=== PATIENT | male | born 1960 | race Caucasian/White ===

== ENCOUNTER → 2017-02-25 | Outpatient (CLI) | payer OTHER ==
[~2017-02-25] MED LIST: FILG300I4 IM; FOLFOX IV; LISI-729 PO; MULT-506 PO; PROC1TAB5 PO
[2017-02-25 10:44] LABS: HEMATOCRIT 38.7 % (42-52); MEAN CORPUSCULAR HEMOGLOBIN 31.3 pg (25-34); MEAN CORPUSCULAR HGB CONC 33.6 g/dl (32-36); MEAN PLATELET VOLUME 8.9 fL (7.4-10.4); PLATELET COUNT 224 K/uL (130-400); RED BLOOD COUNT 4.16 M/uL (4.7-6.1); WHITE BLOOD COUNT 5.56 K/uL (4.8-10.8)
[2017-02-25 11:07] LABS: URINE APPEARANCE CLEAR (CLEAR); URINE BILIRUBIN NEG (NEG); URINE COLOR YELLOW; URINE EPITHELIAL CELL AUTO 0-5 /lpf (0-5); URINE NITRITE NEG (NEG); URINE PH 6.5 (4.5-7.5); URINE SPECIFIC GRAVITY 1.014 (1.000-1.030); UROBILINOGEN NEG (NEG)
[2017-02-25 11:08] LABS: MANUAL MICROSCOPIC REQUIRED? NO; REVIEW REQ? NO
[2017-02-25 11:17] LABS: ALT/SGPT 28 U/L (12-78); BLOOD UREA NITROGEN 12 mg/dl (7-18); BUN/CREATININE RATIO 10.5 (10-20); CALCIUM 9.1 mg/dl (8.5-10.1); CARBON DIOXIDE 30 mmol/L (21-32); CHLORIDE 103 mmol/L (98-107); CHOLESTEROL 267 mg/dl (0-200); GLUCOSE 102 mg/dl (70-99); POTASSIUM 4.1 mmol/L (3.5-5.1); SODIUM 140 mmol/L (136-145)
[2017-02-25 11:27] LABS: CHOLESTEROL/HDL RATIO 3.7; HDL CHOLESTEROL 72 mg/dl; LDL CHOLESTEROL CALCULATED 174 mg/dl; TRIGLYCERIDES 104 mg/dl (0-150); VERY LOW DENSITY LIPOPROT CALC 21 mg/dl
[2017-02-25 12:32] LABS: ESTIMATED AVERAGE GLUCOSE 117 mg/dl; HA1C FLAG Normal (Normal)
== END | disposition home or self-care (01) ==
LOC: C.LABSPEC 11:13
PROVIDERS: ATTEND Family Medicine
DX: I10 Essential (primary) hypertension (principal); R73.01 Impaired fasting glucose; E78.2 Mixed hyperlipidemia

== ENCOUNTER → 2017-05-07 | Outpatient (CLI) | payer OTHER ==
--- NOTE | 2017-05-07 13:10 | DIAGNOSTIC IMAGING REPORT ---
GI W/AIR SMALL BOWEL ROUTINE CLINICAL HISTORY: NAUSEA, HX OF PARTIAL BOWEL OBSTRUCTION COMPARISON STUDY: None FLUOROSCOPY TIME: 3 minutes 20 seconds. FINDINGS: Patient initiates swallowing function well. Esophagus is normal in course and caliber small hiatal hernia. Moderate gastroesophageal reflux. Size and configuration stomach are normal. Delayed imaging the 4 hour 10 minutes demonstrates progressive distention of the small bowel. Etiology is unclear although there appears to be an intermittent tapering in the low abdominal region centrally. Embolus, the appearance is consistent with a high-grade partial small bowel obstructive process. IMPRESSION: High-grade distal small bowel obstruction of uncertain etiology. The above report was generated using voice recognition software. It may contain grammatical, syntax or spelling errors. Electronically signed by: Johnny Rasmussen M.D. 05/07/2017 1:07 PM Dictated Date/Time: 05/07/2017 1:04 PM
== END | disposition home or self-care (01) ==
LOC: C.RAD 08:07
PROVIDERS: ATTEND Colon & Rectal Surgery
DX: K56.69 Other intestinal obstruction (principal); C20 Malignant neoplasm of rectum; Z87.19 Personal history of other diseases of the digestive system

== ENCOUNTER → 2017-07-14 | Outpatient (CLI) | payer OTHER ==
[2016-07-08 14:25] VITALS: BP 125/76; PULSE 91
[2017-07-14 13:30] VITALS: BP 136/80; PULSE 68; TEMP 36.7; O2SAT 98
--- NOTE | 2017-07-14 14:49 | Radiation Oncology Follow-Up ---
Radiation Oncology Follow-Up Date of Visit Jul 14, 2017. Reason For Visit Annual follow-up Radiation Completion Date 12/11/15 Diagnosis (1) Rectal adenocarcinoma Status: Resolved Onset Date: 09/11/2015 Stage: ll Permanent Comment: Change in bowel habits Status post colonoscopy and biopsy 09/11/2015 revealing adenocarcinoma the rectum Clinical stage T3 N0 M0 Plan neoadjuvant radiation and chemotherapy Chemotherapy comprised of Xeloda Status post completion of radiation therapy 12/11/2015 received 5180 cGy Status post AP resection of the rectum 02/25/2016 Stage ypT2 [id number] Adjuvant chemotherapy with FOLFOX Last Edited By: Isis Mantilla on Jul 08, 2016 16:17 History of Present Illness Mr. Lane had not undergone screening colonoscopies. There is no family history of colon cancer. Unfortunately he presented with change in his bowel habits with increase in the number of bowel movements, change in caliber, constipation and ultimately rectal bleeding. The patient underwent his first ever colonoscopy on 09/11/[address] Ferguson. The terminal ileum appeared normal. There were scattered small and largemouth diverticula in the sigmoid colon. A fungating nonobstructing large mass was found in the distal rectum. The mass was partially circumferential involving one half of the lumen circumference. The mass measured 10 cm in length extending from the anal verge to the 10 cm level. The tissue was friable, noted fresh blood in the rectum was identified at the time of the colonoscopy). Biopsies were taken. This revealed an invasive moderately differentiated adenocarcinoma. Accession #: [id number]. Dr. Ferguson ordered a CT scan of the chest abdomen and pelvis performed on 2015. CT scan of the chest showed no evidence of metastatic disease within the chest. An indeterminate 8 mm left renal lesion was noted. It was reported this could reflect a solid renal lesion or possibly a complex cyst. A follow- up nonemergent renal protocol CT was recommended. CT scan of the abdomen and pelvis also on September 18 showed mild hepatic steatosis with no space-occupying hepatic masses visualized. Gallbladder spleen and pancreas were unremarkable. The 8 mm exophytic left renal mass was again noted. This succeeded water attenuation and was therefore indeterminate. There was soft tissue thickening involving the rectum. There was no intraperitoneal free air of abdominal ascites. A few small lymph nodes were seen within the perisigmoid fat that were not pathologically enlarged. There was no skeletal evidence of destructive bony lesions. The bladder and pelvic viscera are unremarkable. Patient also underwent an MRI of the pelvis also on 09/18/2015. This showed a long segment of irregular rectal wall thickening of the mid to distal rectum. This began at the level of the mid rectum. The distal extent is difficult to assess on this exam but extends towards the anus. The overall extension was possibly 9.7 cm. There was enhancement of the wall which appeared irregular. On several images this suspected tumor appears to extend beyond the muscularis propria within the right lateral aspect of the rectum. There was no evidence for bowel obstruction. There were several perirectal lymph nodes which measure up to 7 mm and a round millimeter inferior mesenteric lymph node shown on image 1:30. These are all indeterminate. No enlarged inguinal nodes are identified. No areas of bone marrow replacement is appreciated. The patient was seen by Dr. Hairston for surgical evaluation.. He discussed with the patient the use of neoadjuvant chemoradiation followed in 16 weeks by surgery. Based on the radiologic and clinical findings the patient would require an APR. The patient was also seen by Dr. Barraza for medical oncology evaluation. He agreed with the plan of neoadjuvant chemoradiation and has written a prescription for daily Xeloda along with his daily radiation treatments. He was seen by Dr. Villela/ Dr. Oshea for evaluation of the renal finding. They suggested a repeat CT renal mass protocol in 6 months. We are asked to see the patient in referral to discuss with him the role of neoadjuvant chemoradiation. He was treated from 11/01/2015 to 12/11/2015. He received 5180 cGy. Chemotherapy comprised of Xeloda. Interim History He had issues with recurrent abdominal pain and cramping. He had then have associated nausea vomiting and diarrhea. This began over several months time. It would happen once a month. The reoccurrences became more frequent. In April he was admitted with a small bowel obstruction. He underwent a resection and has been doing well since. He has not had any further abdominal pain, cramping, nausea, or vomiting. During the episodes of cramping and nausea he lost 20 pounds. He is now regained the weight he had lost. He is following a low residue diet as instructed by the colorectal surgeon. 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 He is seen regularly by medical oncology and has had rechecked studies including a CEA titer which is normal. Allergies Coded Allergies: Penicillins (Verified Allergy, Unknown, RASH, 03/19/16) Rosuvastatin (Verified Allergy, Unknown, Joint & Muscle Pain, 03/19/16) Simvastatin (Verified Allergy, Unknown, Joint & Muscle Pain, 03/19/16) Home Medications Scheduled Lisinopril (Zestril), 5 MG PO QAM Multivitamin (Multivitamin), 1 TAB PO QAM Review of Systems Gastrointestinal: Symptoms: Ostomy GI Comments: Reports normal ostomy function; Oral: Symptoms: No Problems Respiratory: Symptoms: WNL Urinary: Symptoms: WNL Skin: Symptoms: No Problems Physical Exam Vital Signs Date Time Temp Pulse Resp B/P (MAP) Pulse Ox O2 Delivery O2 Flow Rate FiO2 07/14/17 13:30 36.7 68 24 136/80 98 Fatigue: None General Appearance: no apparent distress Eyes: normal inspection, EOMI ENT: normal ENT inspection, hearing grossly normal Neck: no adenopathy, thyroid normal Respiratory/Chest: lungs clear, no respiratory distress, no accessory muscle use Cardiovascular: regular rate, rhythm, no gallop, no murmur Abdomen: non tender, soft, no organomegaly, + pertinent finding (ostomy in place without issues) Anal / Rectum: Skin of the perineum has healed. There is no telangiectasia. Neurologic/Psychiatric: alert, normal mood/affect Skin: warm/dry Lymphatic: no adenopathy Pain Management Side: Bilateral Pain Location: None Patient Preferred Pain Scale: 0 - 10 Laboratory Studies Test 05/07/17 11:51 White Blood Count 8.41 K/uL (4.8-10.8) Red Blood Count 4.35 M/uL (4.7-6.1) Hemoglobin 13.7 g/dL (14.0-18.0) Hematocrit 39.9 % (42-52) Mean Corpuscular Volume 91.7 fL (80-100) Mean Corpuscular Hemoglobin 31.5 pg (25-34) Mean Corpuscular Hemoglobin Concent 34.3 g/dl (32-36) Platelet Count 321 K/uL (130-400) Mean Platelet Volume 9.2 fL (7.4-10.4) Neutrophils (%) (Auto) 76.9 % Lymphocytes (%) (Auto) 12.8 % Monocytes (%) (Auto) 9.6 % Eosinophils (%) (Auto) 0.4 % Basophils (%) (Auto) 0.1 % Neutrophils # (Auto) 6.46 K/uL (1.4-6.5) Lymphocytes # (Auto) 1.08 K/uL (1.2-3.4) Monocytes # (Auto) 0.81 K/uL (0.11-0.59) Eosinophils # (Auto) 0.03 K/uL (0-0.5) Basophils # (Auto) 0.01 K/uL (0-0.2) RDW Standard Deviation 43.6 fL (36.4-46.3) RDW Coefficient of Variation 13.0 % (11.5-14.5) Immature Granulocyte % (Auto) 0.2 % Immature Granulocyte # (Auto) 0.02 K/uL (0.00-0.02) Sodium Level 137 mmol/L (136-145) Potassium Level 3.5 mmol/L (3.5-5.1) Chloride Level 99 mmol/L (98-107) Carbon Dioxide Level 30 mmol/L (21-32) Anion Gap 8.0 mmol/L (3-11) Blood Urea Nitrogen 9 mg/dl (7-18) Creatinine 0.92 mg/dl (0.60-1.40) Est Creatinine Clear Calc Drug Dose 100.4 ml/min Estimated GFR () 105.9 Estimated GFR (Non- 91.4 BUN/Creatinine Ratio 9.3 (10-20) Random Glucose 99 mg/dl (70-99) Calcium Level 9.7 mg/dl (8.5-10.1) Total Bilirubin 1.1 mg/dl (0.2-1) Aspartate Amino Transferase (AST) 27 U/L (15-37) Alanine Aminotransferase (ALT) 38 U/L (12-78) Alkaline Phosphatase 113 U/L (45-117) Total Protein 7.7 gm/dl (6.4-8.2) Albumin 3.9 gm/dl (3.4-5.0) Globulin 3.8 gm/dl (2.5-4.0) Albumin/Globulin Ratio 1.0 (0.9-2) Carcinoembryonic Antigen < 0.5 ng/ml (0-2.5) Assessment & Plan Plan: Continue regular follow-up with medical oncology has an appointment next month. He'll be having recheck CEA titer. Continue follow-up with the colorectal surgeon. We asked him to return to our office in 1 year. He may call if he has any questions or concerns in the interim. Total Time In Follow-Up I spent 20 minutes speaking to the patient performing his examination. I spent 15 minutes reviewing information in completing this note. Copy To Rusty Barraza D.O.; Allan Hairston M.D.; Theodore Miller M.D.
== END | disposition home or self-care (01) ==
LOC: C.ONC 13:26
PROVIDERS: ATTEND Physician Assistant Medical
DX: Z08 Encounter for follow-up examination after completed treatment for malignant neoplasm (principal); Z92.3 Personal history of irradiation; Z85.048 Personal history of other malignant neoplasm of rectum, rectosigmoid junction, and anus

== ENCOUNTER → 2018-03-18 | Outpatient (CLI) | payer OTHER ==
[~2018-03-18] MED LIST changes: -FILG300I4 IM; -FOLFOX IV; -PROC1TAB5 PO
[2018-03-18 09:20] LABS: BASO % 0.5 %; BASO ABS # 0.03 K/uL (0-0.2); EOS % 2.7 %; EOS ABS # 0.17 K/uL (0-0.5); IG# 0.05 K/uL (0.00-0.02); LYMPH % 23.9 %; LYMPH ABS # 1.53 K/uL (1.2-3.4); MEAN CELL VOLUME 93.3 fL (80-100); MEAN CORPUSCULAR HEMOGLOBIN 31.1 pg (25-34); MEAN CORPUSCULAR HGB CONC 33.3 g/dl (32-36); MEAN PLATELET VOLUME 9.3 fL (7.4-10.4); MONO % 8.1 %; MONO ABS # 0.52 K/uL (0.11-0.59); PLATELET COUNT 286 K/uL (130-400); RED CELL DISTRIBUTION WIDTH CV 13.2 % (11.5-14.5); RED CELL DISTRIBUTION WIDTH SD 44.8 fL (36.4-46.3)
[2018-03-18 09:43] LABS: ALBUMIN 3.7 gm/dl (3.4-5.0); ALKALINE PHOSPHATASE 112 U/L (45-117); ALT/SGPT 42 U/L (12-78); AST/SGOT 34 U/L (15-37); BLOOD UREA NITROGEN 15 mg/dl (7-18); CALCIUM 8.8 mg/dl (8.5-10.1); CARBON DIOXIDE 27 mmol/L (21-32); CREATININE 1.01 mg/dl (0.60-1.40); GLUCOSE 112 mg/dl (70-99); POTASSIUM 3.8 mmol/L (3.5-5.1); SODIUM 139 mmol/L (136-145); TOTAL PROTEIN 7.8 gm/dl (6.4-8.2)
== END | disposition home or self-care (01) ==
LOC: C.LABSPEC 09:02
PROVIDERS: ATTEND Internal Medicine Hematology & Oncology
DX: C20 Malignant neoplasm of rectum (principal)

== ENCOUNTER → 2018-03-18 | Outpatient (CLI) | payer OTHER ==
--- NOTE | 2018-03-18 10:10 | DIAGNOSTIC IMAGING REPORT ---
PELVIS/BILATERAL HIP 2 VIEWS CLINICAL HISTORY: BILAT HIP PAIN pain COMPARISON STUDY: No previous studies for comparison. FINDINGS: Considerable degenerative change of both hips. Considerable narrowing of the joint spaces. Potential subchondral cyst formation bilaterally. No evidence for fracture or dislocation. No evidence for acetabular protrusion. 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 MRI of the hips is suggested as follow-up. The above report was generated using voice recognition software. It may contain grammatical, syntax or spelling errors. Electronically signed by: Johnny Rasmussen M.D. 03/18/2018 10:09 AM Dictated Date/Time: 03/18/2018 10:07 AM
== END | disposition home or self-care (01) ==
LOC: C.RAD 09:28
PROVIDERS: ATTEND Nurse Practitioner
DX: M79.604 Pain in right leg (principal); M79.605 Pain in left leg; M25.552 Pain in left hip; M25.551 Pain in right hip